=== PATIENT | female | born 1985 | race Two or more races ===

== ENCOUNTER 2024-05-28 08:36 | Outpatient (CLI) | payer OTHER ==
--- NOTE | 2024-05-29 01:57 | Ultrasound Report ---
PROCEDURE: Pelvic w/Transvaginal INDICATIONS: PREMENSTRAL DYSPHORIC DISORDER TECHNIQUE: Transabdominal/transvaginal ultrasound of the pelvis was obtained. Endovaginal scanning wa s necessary due to incomplete visualization of the adnexal and endometrial structures by transabdomin al scanning. COMPARISON: None. FINDINGS: Uterine size: Uterus measures 7.5 x 5.1 x 6.2 cm, and is anteverted. Myometrium: The myometrium is heterogenous left anterior subserosal fibroid 0.9 x 1.1 x 1.0 cm. Lef t posterior subserosal fibroid 1.4 x 0.7 x 1.0 cm. Right posterior subserosal fibroid 1.6 x 0.8 x 1.0 cm Endometrium: The endometrium measures 10.2. Nonspecific echogenic focus noted measuring 1.3 cm mm in combined thickness. Right ovary: The right ovary measures 1.7 x 3.0 x 1.7 cm. Calculated ovarian volume 4.5 cc. Left ovary: The left ovary measures 1.4 x 2.3 x 1.6 cm. Calculated ovarian volume 2. cc. Other: No pathologic free abdominal or pelvic fluid. IMPRESSION: Uterine fibroids Reviewed by: Jadiel Batista MD on 05/29/2024 12:55 AM RITU Approved by: Jadiel Batista MD on 05/29/2024 12:55 AM RITU Station ID: [id number]
== END 2024-05-28 08:37 | disposition home or self-care (01) ==
LOC: DI 08:36
PROVIDERS: ATTEND Nurse Practitioner Family
DX: D25.2 Subserosal leiomyoma of uterus (principal)